=== PATIENT | male | born 1975 | race Caucasian/White ===

== ENCOUNTER 2020-08-07 08:22 | Emergency (ER) | payer SELFPAY ==
[2020-08-07 08:23] VITALS: BP 147/108; PULSE 89; RESP 16; TEMP 36.3; O2SAT 96; BMI 30.1
[2020-08-07] MEDS: Tetracaine 0.5% Ophthalmic Bottle 1 DRP RIGHT EYE (08:42)
--- NOTE | 2020-08-07 08:49 | ED.VIS.GEN ---
History of Present Illness Chief Complaint: Eye Problem Informant: Patient Onset: Days Maximum Severity: Mild Narrative: The patient complains of right eye irritation since Saturday. While at work that day he was wearing safety goggles he was looking up in some rafters trying to do some work and some lizette debris fell striking his face something got in his eye he washed his eye out he has had a persistent sense of irritation since, he really complains of no significant change in vision just irritation. No direct trauma no obvious metal fragments there was not any high velocity activity just as described above Past Medical History - Allergies and Home Meds Allergies/Adverse Reactions: Allergies No Known Allergies Allergy (Verified 08/07/20 08:22) Primary Care Physician: [facility] Doctor,Out of [Primary Care Provider] - Past Medical History: None Smoking Status: Never smoker Review of Systems General: Denies: Chills, Fever, Sweats Eyes: Reports: Blurred vision - right. Denies: Visual changes - bilaterally, Diplopia ENT: Denies: Rhinorrhea, Sore throat Cardiovascular: Denies: Chest pain, Palpitations Respiratory: Denies: Dyspnea, Cough, Dyspnea on exertion Gastrointestinal: Denies: Abdominal pain, Nausea, Vomiting, Diarrhea, Melena, Hematochezia Genitourinary: Denies: Dysuria, Hematuria, Frequency Musculoskeletal: Denies: Back pain, Extremity Pain Skin: Denies: Rash, Wounds Neurological: Denies: Headache, Weakness, Numbness Physical Exam Vital Signs/Narrative: Vital Signs Temp Pulse Resp BP Pulse Ox 08/07/20 08:23 97.4 F L 89 16 147/108 H 96 General: Well nourished, Well developed, No Acute Distress Head: Normocephalic, Atraumatic Eyes: Perrl, EOMI, - - There eye exam is generally unremarkable left and right, right eyes pupils react well anterior chamber intact, extra muscles normal, there is some irritation to the bulbar conjunctiva to 3 o'clock position, tetracaine used slit-lamp use, no flourseen in the hospital, but there was no signs of any ab ENT: Moist mucous membranes, No rhinorrhea Neck: Supple, Nontender Cardiovascular: Regular rate, Regular rhythm, No murmurs Respiratory: No distress, CTA bilaterally, Chest nontender Abdomen: Soft, Nontender, Nondistended, Normal bowel sounds Back: Nontender, Normal Inspection Extremities: Nontender, No edema Skin: Normal color, No rash Neurological: Alert, Oriented x3, Cranial nerves II-XII grossly intact, Normal Strength, Normal Sensation Psychological: Normal affect, Normal Mood Diagnostic/Tx/Re-eval - Medical Decision Making Again slit-lamp used with tetracaine as there was no fluorescein stain available at the hospital due to national shortage. Visual acuity is normal and the patient can read small print. He is feeling remarkably better after tetracaine applied I explained to him the concept of a corneal abrasion irritation damage due to the lizette type debris falling to his face, again he was wearing goggles, at this time start erythromycin topical ointment follow-up ophthalmology tomorrow return for change in symptoms Home stable Final impression right eye irritation possible corneal abrasion foreign body exposure ED Disposition - Plan for ED Patient: Instructions: Corneal Injury Prescriptions: Erythromycin Ophthalmic 1 applic RIGHT EYE TID #1 tube Prescription Printed Referrals: [facility] Doctor,Out of [Primary Care Provider] - Karyn Galan MD [STAFF PHYSICIAN] -
[2020-08-07] MEDS: Erythromycin Base 1 OPTH.TUBE 1 APPLIC RIGHT EYE (08:54)
[2020-08-07 08:56] VITALS: O2SAT 98
== END 2020-08-07 09:24 | disposition home or self-care (01) ==
LOC: ED 09:08
PROVIDERS: Emergency Provider Emergency Medicine
DX: H57.11 Ocular pain, right eye (principal)
CPT/HCPCS: 99282